=== PATIENT | male | born 1980 | race Caucasian/White ===

== ENCOUNTER 2017-07-14 08:55 | Emergency (ER) | payer SELFPAY ==
[2017-07-14 09:18] VITALS: BP 118/72; PULSE 76; RESP 18; TEMP 98.3; O2SAT 100
--- NOTE | 2017-07-14 09:41 | C.PDOC ---
History Of Present Illness 37 y/o M p/w R upper back mass x 6 months. Reports a swelling round mass to the R upper back that has been slowly becoming larger for 6 months. Denies fever, pain, dyspnea, discharge, rash. Time Seen by Provider: 07/14/17 09:21 Chief Complaint (Nursing): Abnormal Skin Integrity Past Medical History Vital Signs: Last Vital Signs Temp 98.3 F 07/14/17 09:10 Pulse 76 07/14/17 09:10 Resp 18 07/14/17 09:10 BP 118/72 07/14/17 09:10 Pulse Ox 100 07/14/17 09:41 Family History: States: No Known Family Hx - Social History Hx Alcohol Use: No Hx Substance Use: No - Immunization History Hx Tetanus Toxoid Vaccination: No Hx Influenza Vaccination: No Hx Pneumococcal Vaccination: No Review Of Systems Except As Marked, All Systems Reviewed And Found Negative. Constitutional: Negative for: Fever Respiratory: Negative for: Shortness of Breath Physical Exam - Physical Exam Additional Physical Exam Comments: Gen: NAD Head: NC Eyes: No scleral icterus ENT: MMM Neck: FROM CV: Regular rate Resp: No accessory muscle use. No stridor Back: R upper back with soft mass with free moving tissue superficially. No skin changes, no erythema or induration. No discharge. Skin: As above Neuro: Alert ED Course And Treatment O2 Sat by Pulse Oximetry: 100 Medical Decision Making Medical Decision Making: Informed patient that most likely lipoma, can not rule out malignancy. Instructed will require further follow up in clinic or office setting. Instructed to return to the ED immediately for any fever, dyspnea, redness, or discharge. Disposition - Disposition Referrals: [facility] [Outside] Disposition: HOME/ ROUTINE Disposition Time: 09:40 Condition: STABLE Instructions: Lipoma Forms: [employer] (Portuguese) - Clinical Impression Clinical Impression: Mass on back
== END 2017-07-14 09:52 | disposition home or self-care (01) ==
LOC: C.ER 08:55
DX: R22.2 Localized swelling, mass and lump, trunk (principal)

== ENCOUNTER 2017-08-16 09:17 | Emergency (ER) | payer OTHER ==
[2017-08-16 09:17] VITALS: BMI 36.1
[2017-08-16 09:41] VITALS: O2SAT 98
[2017-08-16] MEDS ORDERED: Sodium Chloride 0.9% 1,000 ML IV ONE (09:59)
[2017-08-16 10:22] LABS: BASO # 0.1 K/uL (0.0-0.2); BASO % 0.8 % (0.0-2.0); EOS # 0.2 K/uL (0.0-0.7); EOS % 1.6 % (0.0-4.0); HEMOGLOBIN 14.4 g/dL (12.0-18.0); LYMPH % 17.2 % (20.0-40.0); MEAN CELL VOLUME 87.5 fL (80.0-94.0); MEAN CORPUSCULAR HGB CONC 34.3 g/dL (33.0-37.0); MEAN PLATELET VOLUME 8.8 fL (7.2-11.7); MONO # 0.7 K/uL (0.0-0.8); MONO % 6.2 % (0.0-10.0); NEUT # 8.4 K/uL (1.8-7.0); NEUT % 74.2 % (50.0-75.0); NRBC % 0.1 % (0.0-2.0); RBC 4.82 Mil/uL (4.40-5.90); RED CELL DISTRIBUTION WIDTH 13.1 % (11.5-14.5); WHITE BLOOD COUNT 11.4 K/uL (4.8-10.8)
[2017-08-16 10:24] LABS: PROTHROMBIN TIME 10.7 SECONDS (9.7-12.2)
[2017-08-16 10:28] LABS: CALCIUM 9.3 mg/dl (8.6-10.4); GFR AFRICAN-AMERICAN > 60; GFR NON-AFRICAN AMERICAN > 60
--- NOTE | 2017-08-16 10:30 | RAD ---
HISTORY: SOB COMPARISON: No prior. TECHNIQUE: Chest PA and lateral FINDINGS: LUNGS: There appears to be some localized atelectasis and or scarring left CP angle region. PLEURA: No significant pleural effusion identified. No pneumothorax apparent. CARDIOVASCULAR: Normal. OSSEOUS STRUCTURES: No significant abnormalities. VISUALIZED UPPER ABDOMEN: Normal. OTHER FINDINGS: None. IMPRESSION: Suspect localized atelectasis or scarring left CP angle region.
[2017-08-16 10:32] LABS: ALB/GLOB RATIO 1.2 (1.0-2.1); ALBUMIN 4.8 g/dL (3.5-5.0); ALT/SGPT 29 U/L (21-72); AST/SGOT 48 U/L (17-59); BLOOD UREA NITROGEN 11 mg/dL (9-20)
[2017-08-16] MEDS ORDERED: Sodium Chloride 0.9% 1,000 ML ONE (10:35)
--- NOTE | 2017-08-16 10:40 | C.PDOC ---
History Of Present Illness 37yo male,with no past medical history, presents to ER for evaluation of right chest discomfort, worse with inspiration. He denies any associated shortness of breath, lightheadedness, history of PE. Patient was referred to the ED by [facility] to rule out a possible PE. PMD: [facility] Time Seen by Provider: 08/16/17 09:52 Chief Complaint (Nursing): Chest Pain History Per: Patient History/Exam Limitations: no limitations Current Symptoms Are (Timing): Still Present Additional History Per: Patient Past Medical History Reviewed: Historical Data, Nursing Documentation, Vital Signs Vital Signs: Last Vital Signs Temp 98.7 F 08/16/17 11:51 Pulse 57 L 08/16/17 11:51 Resp 16 08/16/17 11:51 BP 114/73 08/16/17 11:51 Pulse Ox 98 08/16/17 11:51 - Medical History PMH: No Chronic Diseases Surgical History: No Surg Hx Family History: States: No Known Family Hx Denies: [place], CAD - Social History Hx Tobacco Use: No Hx Alcohol Use: No Hx Substance Use: No - Immunization History Hx Tetanus Toxoid Vaccination: No Hx Influenza Vaccination: No Hx Pneumococcal Vaccination: No Review Of Systems Except As Marked, All Systems Reviewed And Found Negative. Constitutional: Negative for: Fever, Chills Cardiovascular: Positive for: Chest Pain. Negative for: Light Headedness Respiratory: Negative for: Shortness of Breath Physical Exam - Physical Exam Appears: Non-toxic, No Acute Distress, Other (obese) Skin: Normal Color, Warm, Dry Head: Atraumatic, Normacephalic Eye(s): bilateral: Normal Inspection, PERRL Neck: Normal ROM, Supple Chest: Symmetrical, No Tenderness Cardiovascular: Rhythm Regular Respiratory: Normal Breath Sounds Gastrointestinal/Abdominal: Normal Exam, Soft Extremity: Normal ROM, No Pedal Edema Neurological/Psych: Oriented x3 ED Course And Treatment - Laboratory Results Result Diagrams: 08/16/17 10:06 08/16/17 10:06 Lab Interpretation: Normal (trop, bnp, d-dimer neg.) ECG: Interpreted By Me, Viewed By Me ECG Rhythm: Sinus Rhythm ECG Interpretation: Normal Rate From EC O2 Sat by Pulse Oximetry: 98 (RA) Pulse Ox Interpretation: Normal - Radiology CXR: Interpreted by Me, Read By Radiologist CXR Interpretation: Yes: No Acute Disease Reevaluation Time: 12:08 Reassessment Condition: Improved Medical Decision Making Medical Decision Making: Impression: Chest pain, r/o PE plan: -- Labs -- CXR -- EKG -- Toradol 30mg IV -- IV fluids chest discomfort NOT PE normal exam. alyx educated. Disposition Doctor Will See Patient In The: Office Counseled Patient/Family Regarding: Studies Performed, Diagnosis - Disposition Disposition: HOME/ ROUTINE Disposition Time: 12:09 Condition: GOOD Forms: [employer] (Bahraini) - Clinical Impression Clinical Impression: Chest discomfort - Scribe Statement The provider has reviewed the documentation as recorded by the Scribe (Sandie Mahajan) Provider Attestation: All medical record entries made by the Scribe were at my direction and personally dictated by me. I have reviewed the chart and agree that the record accurately reflects my personal performance of the history, physical exam, medical decision making, and the department course for this patient. I have also personally directed, reviewed, and agree with the discharge instructions and disposition.
[2017-08-16 11:52] VITALS: BP 114/73; PULSE 57; RESP 16; TEMP 98.7
--- NOTE | 2017-08-17 12:14 | CARD ---
APPROVED REPORT EKG Measurement Heart [id number] <Conclusion> Normal sinus rhythm Possible Left atrial enlargement RSR' or QR pattern in V1 suggests right ventricular conduction delay Left ventricular hypertrophy Abnormal ECG
== END 2017-08-16 12:25 | disposition home or self-care (01) ==
LOC: C.ER 09:17
DX: R07.89 Other chest pain (principal)
CPT/HCPCS: 71046; 80053; 84484; 85025; 85378; 85610; 85730; 93005; 96374; 99284; J1885; J7040

== ENCOUNTER 2017-09-07 08:06 | Day surgery (SDC) | payer OTHER ==
[2017-09-07] MEDS ORDERED: Lidocaine Hydrochloride 10 ML INJ ONE (09:46)
[2017-09-07] MEDS ORDERED: ceFAZolin 1 gm in NS 1 GM/100 ML BAG IVPB ONE (09:47)
[2017-09-07] MEDS ORDERED: Bupivacaine HCl 0.25% PF (30 ml) Inj ONE (09:47)
[2017-09-07] MEDS ORDERED: Propofol 10 mg/ml Inj (20 ML) ONE (11:03)
[2017-09-07] MEDS ORDERED: Midazolam 2 MG/2 ML VIAL ONE (11:03)
[2017-09-07] MEDS ORDERED: Lidocaine 2% MPF (5 ml) Inj ONE (11:31)
[2017-09-07] MEDS ORDERED: Rocuronium 10 mg/ml (5 ml) ONE (11:33)
[2017-09-07] MEDS ORDERED: Succinylcholine Chloride 20 mg/ml Syr (5 ml) IV ONE (11:33)
[2017-09-07] MEDS ORDERED: HYDROmorphone 0.5 mg/0.5 ml ISec IVP PRN (13:11)
--- NOTE | 2017-09-07 13:27 | PCM.SURG1 ---
Surgeon's Initial Post Op Note - Surgeon's Notes Surgeon: Julia Ruiz MD Business Mgr: SIGRID [id number] Pre-Operative Diagnosis: Right upper back lipoma removal Operative Findings: multilobulated lipoma Post-Operative Diagnosis: same Operation Performed: Excision of right upper back lipoma Specimen/Specimens Removed: lipoma Estimated Blood Loss: EBL {In ML}: 75 Date of Surgery/Procedure: 09/07/17 Time of Surgery/Procedure: 11:00
[2017-09-07 14:26] VITALS: RESP 16; O2SAT 100
[2017-09-07 14:46] VITALS: BP 128/81; PULSE 66; TEMP 97.7
--- NOTE | 2017-09-07 17:20 | PCM.OP ---
Operative Report - Operative Report Date of Surgery/Procedure: 09/07/17 Time of Surgery/Procedure: 11:00 Surgeon: Julia Ruiz MD Veterinary Attendant: Kevin Lee MD PGY2 resident Anesthesia/Sedation: General; Lidocain+Marcaine mix local anesthesia Pre-Operative Diagnosis: soft tissue mass right upper back/posterior neck Post-Operative Diagnosis: Lipomatous soft tissue mass right upper back/ posterior neck; Indication for Surgery: The patient is a 37 year old male with history of a lump on his right upper back and posterior neck noted several years ago. It has slowly grown in size become bothersome with wearing clothing and wishes to have this removed for symptoms and also for cosmetic reasons. Details of HPI as documented in patients chart. All potential risks, benefits, and complications of the procedure were discussed with the patient, and informed consent was obtained prior to the operation. Operative Findings: Large bi-lobed lipomatous mass extending into superficial fascia of back. Total specimen max length measured 16cm x 3-4cm width. Procedure/Operation Description: PROCEDURE PERFORMED: Excision of lipomatous soft tissue mass, right upper back. Patient was taken to operating room. General endotracheal intubation performed by anesthesia on [facility] and patient safely transferred over to operating table in prone position. Foam padding provided for face, and separate bolster padding for hips and torso. Pillow place under legs. Arms placed in neutral position on arms boards with elbows slightly flexed and fingers pointed toward head of bed. A safety strap was then placed across the thighs. 1 gram of Ancef was given within 30 minutes prior to incision. SCDs were placed for thromboprophylaxis. No hair removal was necessary. Right upper back and base of neck prepped and draped in sterile fashion. A time out was performed prior to incision. The borders of the soft tissue mass in right upper back were marked with marker. Next, approximately 10cc of 1% lidocaine mixed with 0.25% Marcaine were used to locally anesthetize the skin directly over the mass. A #15 blade scalpel was utilized to make an approximately 4-5cm transverse incision over the soft tissue mass. Upon incising the skin and the subcutaneous tissue readily and there was the fatty tissue mass. The mass was circumferentially dissected using a combination of blunt, sharp and electrocautery dissection. It appeared the mass was deep into the fascia and took extra time to free up. We increased our incisions by 1cm on each end to allow better access for the deeper portions. Examination of the wound then revealed a second piece of fatty tissue, which resembled a lipoma. It was adherent to the other tissue and was removed together. Appeared to be a bi-lobed lipomatous mass. In total the specimen measured 18cm in length when splayed across. The wound was then copiously irrigated, and Hemostasis was obtained. Additional local anesthesia (10mL) was injected into the deeper layer of tissue. The wound was closed in multiple layers to obliterate the large wound cavity. #2-0 Vicryl running superficial fascial sutures were first placed , followed by 3- running Vicryl suture for deep dermal and sub cutaneous tissue , and finally skin closed using running 4-0 Monocryl. 10mL of local anesthesia was again given into the skin around the incision. Dermabond was applied to the skin, and once dry a pressure dressing was applied with 4x4 gauze, ABD pad and tape. The patient was rolled from OR table to [facility] from prone to supine position without incident. Once safely transferred to [facility], he was extubated in the OR and taken to recovery in stable condition. I was present for the entirety of the operation. Sponge needle, and instrument counts were correct. Estimated Blood Loss: 75 Complications: none Specimen: Lipomatous tissue Discharge & Condition: PACU stable.
== END 2017-09-07 15:10 | disposition home or self-care (01) ==
LOC: C.SDS 08:06
PROVIDERS: ATTEND Surgery
DX: D17.1 Benign lipomatous neoplasm of skin and subcutaneous tissue of trunk (principal)
CPT/HCPCS: 21931; 88307; J0690; J1885; J2001; J2250; J2405; J2704; J3010